=== PATIENT | female | born 1985 | race African-American/Black ===

== ENCOUNTER 2020-06-03 20:25 | Inpatient (IN) | payer OTHER ==
[~2020-06-03] VITALS: Ht 154.9 cm; Wt 78.0 kg
[2020-06-03] MEDS ORDERED: [UNRECOGNIZED DRUG - OTHER] PO (20:54)
[2020-06-04] MEDS ORDERED: ATABEX OB TABL1 EACH PO (09:16)
== END 2020-06-06 14:31 | DRG 807 ==
LOC: OB/GYN 20:25 → LDR 20:25 → OB/GYN 06-04 11:57
PROVIDERS: ADMIT Obstetrics & Gynecology; ATTEND Obstetrics & Gynecology
PROC: 4A0HXFZ Measurement of Products of Conception, Cardiac Rhythm, External Approach (ICD-10-PCS; 2020-06-03)
PROC: 10E0XZZ Delivery of Products of Conception, External Approach (ICD-10-PCS; principal; 2020-06-04)
DX: O80 Encounter for full-term uncomplicated delivery (principal); Z37.0 Single live birth; Z3A.39 39 weeks gestation of pregnancy; Z20.828 Contact with and (suspected) exposure to other viral communicable diseases